=== PATIENT | female | born 1975 | race Asian ===

== ENCOUNTER 2019-08-12 15:28 | Emergency (ER) | payer BC ==
[~2019-08-12] VITALS: Ht 157.5 cm; Wt 52.2 kg
[2019-08-12] MEDS ORDERED: VENTOLIN HFA INH8 GM INH (15:36)
[2019-08-12 15:46] LABS: ABSOLUTE NEUTROPHILS 3.1 thou/uL (1.4-8.2); BASOPHILS 0.7 % (0.0-2.0); HEMATOCRIT 46.1 % (37.0-47.0); HEMOGLOBIN 15.3 gm/dL (12.0-15.0); LYMPHOCYTES 31.1 % (24.0-44.0); MCH 32.8 pg (26.0-34.0); MCHC 33.1 g/dL (28.0-37.0); MCV 99.3 fL (80.0-100.0); MONOCYTES 9.6 % (1.0-8.0); PLATELET COUNT 235 thou/uL (150-400); POLYS 51.6 % (36.0-66.0); RBC 4.65 mil/uL (4.20-5.00); RDW 14.1 % (10.5-14.5)
[2019-08-12 15:48] LABS: CALCIUM 9.9 mg/dL (8.5-10.1); CREATININE 0.9 mg/dL (0.6-1.0)
[2019-08-12 15:53] LABS: ALBUMIN 3.9 g/dL (3.4-5.0); TOTAL BILIRUBIN 0.3 mg/dL (<0.1-1.0); TOTAL PROTEIN 7.4 g/dL (6.4-8.2)
[2019-08-12] MEDS ORDERED: DIVALPROEX SOD500 M1 PO (16:13)
[2019-08-12] MEDS ORDERED: LAMOTRIGINE250 MG PO (16:14)
[2019-08-12] MEDS ORDERED: TESSALON PERLE100 M1 PO (17:49)
[2019-08-12] MEDS ORDERED: SPIRIVA18 MCG INH (17:49)
[2019-08-12] MEDS ORDERED: PROAIR HFA8.5 GM INH (17:49)
[2019-08-12] MEDS ORDERED: PREDNISONE 10 M10 MG PO (17:49)
[2019-08-12] MEDS ORDERED: NORCO 5-325 TA1 EAC1 PO (17:52)
[2019-08-12 18:15] VITALS: BP 116/73
--- NOTE | 2019-08-14 15:00 | EKG ---
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
== END 2019-08-12 18:15 | disposition home or self-care (01) ==
LOC: ER 15:28
PROVIDERS: Emergency Medicine
DX: J06.9 Acute upper respiratory infection, unspecified (principal); R09.1 Pleurisy; R07.89 Other chest pain; J45.909 Unspecified asthma, uncomplicated; F31.9 Bipolar disorder, unspecified; Z88.0 Allergy status to penicillin; Z88.2 Allergy status to sulfonamides; Z88.6 Allergy status to analgesic agent